=== PATIENT | female | born 1950 | race Caucasian/White ===

== ENCOUNTER → 2016-10-27 | Outpatient (CLI) | payer MEDICARE | LOC: CT 09-11 15:30 → KOH-I 15:57 → CT 16:00 | DX: F17.210 Nicotine dependence, cigarettes, uncomplicated (principal); J43.9 Emphysema, unspecified | CPT/HCPCS: G0297 ==

== ENCOUNTER → 2021-05-19 | Outpatient (CLI) | payer MEDICARE | LOC: KOH-I 09:59 | DX: F17.210 Nicotine dependence, cigarettes, uncomplicated (principal) | CPT/HCPCS: 71271 ==